=== PATIENT | female | born 1955 | race Caucasian/White ===

== ENCOUNTER → 2023-10-08 10:38 | Outpatient (CLI) | payer MEDICARE, OTHER, SELFPAY ==
--- NOTE | ~2023-10-08 | CT_ITS ---
Noncontrast CT scan of the lumbar spine CLINICAL HISTORY: Lumbar radiculopathy TECHNIQUE: Axial noncontrast imaging of the lumbar spine was performed. Sagittal and coronal reformat shar images were constructed. Dose reduction technique was used on this scan by utilizing automated ex posure control and iterative reconstruction technique. The dose-length product (DLP) was 942.07 mGy-c m. FINDINGS: Posterior fusion from L3 to L4, bilateral rods and transpedicular screws in place. No acute fracture or subluxation identified. At L1-L2, there is no disc bulge or herniation. No spinal canal stenosis or neural foraminal narrowi ng evident. At L2-L3, there is minimal disc bulge and mild facet arthropathy. There is probable minimal central c anal stenosis. Probable mild right neural foraminal narrowing. Left neural foramen preserved. At L3-L4, there is no definite canal stenosis. Probable posterior decompression. Neural foramina are preserved. At L4-L5, there is minimal disc bulge with moderate to advanced facet arthropathy. No ze central c anal stenosis. There is mild to moderate bilateral neural foraminal narrowing. At L5-S1, there is mild disc bulge, and mild facet arthropathy. No spinal canal stenosis. There is mo derate left neural foraminal narrowing, and mild right neural foraminal narrowing. Paravertebral soft tissues are unremarkable. Impression: Mild degenerative spondylosis overall, as detailed above. Posterior fusion from L3 to L4, as detailed above. Reviewed, dictated and finalized at [place]. GER PIPELINE Impression: Mild degenerative spondylosis overall, as detailed above. Posterior fusion from L3 to L4, as detailed above.
== END ==
PROVIDERS: Visit Provider Physical Medicine & Rehabilitation
DX: M47.26 Other spondylosis with radiculopathy, lumbar region (principal); Z98.1 Arthrodesis status
CPT/HCPCS: 72131